=== PATIENT | male | born 1970 | race African-American/Black ===

== ENCOUNTER 2022-04-09 17:51 | Emergency (ER) | payer MEDICAID, OTHER ==
[~2022-04-09] VITALS: Ht 182.9 cm; Wt 90.0 kg
[2022-04-09 19:30] LABS: Urine Specific Gravity 1.024 (1.001-1.035)
[2022-04-09 19:31] LABS: Urine Blood Negative /uL (Negative)
[2022-04-09 19:33] LABS: Urine Bacteria FEW /hpf (None Seen)
[2022-04-10 00:01] LABS: Basophils # (auto) 0 10 ^3/uL (0-0.2); Eosinophils # (auto) 0.1 10 ^3/uL (0-0.8); Hemoglobin 14.1 g/dL (13.5-17.5); Monocytes # (auto) 0.6 10 ^3/uL (0-1.3); Neutrophils # (auto) 4.6 10 ^3/uL (1.6-8.6); White Blood Cell 8.3 10^3/uL (4.4-10.8)
[2022-04-10 00:02] LABS: Basophils % (auto) 0.4 % (0.0-2.0); Eosinophils % (auto) 1.2 % (0.0-7.0); Lymphocytes % (auto) 36.4 % (10.0-50.0); Mean Corpuscular Hemoglobin 24.5 pg (28.0-32.0); Mean Corpuscular Hgb Conc. 31.3 g/dL (32.0-36.0); Monocytes % (auto) 7.1 % (0.0-12.0); Neutrophils % (auto) 54.9 % (37.0-80.0); Red Blood Cells 5.77 10^6/uL (4.5-5.90); Red Cell Distribution Width 14.8 % (11.8-14.3)
[2022-04-10 00:11] LABS: Albumin 4.1 g/dL (3.4-5.0); BUN/Creatinine Ratio 12.1; Calcium 9.5 mg/dL (8.5-10.1)
[2022-04-10 00:21] LABS: Bilirubin, Total 0.4 mg/dL (0.2-1.0)
[2022-04-10] MEDS ORDERED: cefTRIAXone SOD 1,000 MG VL IM ONE (02:00)
[2022-04-10] MEDS ORDERED: NITR-87 PO (02:03)
[2022-04-10 03:37] VITALS: BP 125/87
== END 2022-04-10 03:17 | disposition home or self-care (01) ==
LOC: ER 17:51
DX: N39.0 Urinary tract infection, site not specified (principal); J45.909 Unspecified asthma, uncomplicated
CPT/HCPCS: 36415; 71045; 74176; 80053; 81003; 81015; 83690; 84484; 85025